=== PATIENT | female | born 1985 | race Caucasian/White ===

== ENCOUNTER → 2023-08-28 08:21 | Outpatient (REF) | payer OTHER, SELFPAY | LOC: WDC 08:21 | PROVIDERS: ATTENDING PHYSICIAN Obstetrics & Gynecology; FAMILY PHYSICIAN Nurse Practitioner | DX: R92.8 Other abnormal and inconclusive findings on diagnostic imaging of breast (principal) | CPT/HCPCS: 76642 ==

== ENCOUNTER → 2023-11-02 08:53 | Outpatient (REF) | payer OTHER, SELFPAY | LOC: RAD 08:53 | PROVIDERS: ATTENDING PHYSICIAN Obstetrics & Gynecology; FAMILY PHYSICIAN Nurse Practitioner | DX: Z31.69 Encounter for other general counseling and advice on procreation (principal); O03.9 Complete or unspecified spontaneous abortion without complication | CPT/HCPCS: 76830; 76856 ==

== ENCOUNTER 2024-01-02 17:20 | Emergency (ER) | payer OTHER, SELFPAY ==
[2024-01-02 17:21] VITALS: BP 123/80
--- NOTE | 2024-01-02 18:32 | ED.GENMED ---
History of Present Illness
General
Chief Complaint: Vaginal Bleeding
Source: patient
Time Seen by Provider: 01/02/24 18:24
History of Present Illness
History of Present Illness:
38yo female currently 9 weeks gestation presenting for evaluation of vaginal bleeding. She started to have spotting 3 days ago. The bleeding has been gradually worsening and she started to pass clots today. She bled through 2 maxi pads so
far today. She also reports pelvic cramping. She had a pelvic ultrasound about 3 weeks ago and there was a small subchorionic hemorrhage present at that time. She has not seen OBGYN this yet but has an appointment scheduled for next week.
She follows with [facility]. Blood type is O positive.
Past History
Past History
ED Past Medical History: Other (Migraines)
ED Past Surgical History:
Social History
Tobacco: Non-smoker
Alcohol: Occasional
Drug: None
Personal:
Living: with family
Phy Exam
General Physical Exam
General Presentation: well appearing
General age: appears stated age
General Skin: warm and dry
General Habitus: normal
General Mental: alert
Pulmonary Exam
Pulmonary Exam: no respiratory distress
Gastrointestinal Exam
Gastrointestinal Exam: non tender, soft and non distended
Thi Coma Scale
Eye Opening: Spontaneous
Verbal Response: Oriented
Motor Response: Obeys Commands
GCS Total Score: 15
Skin Exam
Skin Exam: normal color and warm/dry
Psychiatric Exam
Psychiatric Exam: normal mood/affect
Course
Orders/Labs/Results
Orders:
Orders
01/02/24 18:34
US W Transvaginal Urgent
Comment:
Reason For Exam: 9 weeks , vaginal bleeding and cramping
01/02/24 18:52
Basic Metabolic Panel Urgent
Complete Blood Count/With Diff Urgent
HCG, Beta Quantitative [Beta HCG Quantitative] Urgent
Is this a screen?: No
Abnormal Lab Results
01/02/24
18:52
Absolute Neuts (auto) 6.9 H 10^3/uL
(1.4-6.5)
Lymphocytes % 20.2 L %
(20.5-51.1)
Glucose 100 H mg/dl
(70-99)
01/02/24 18:52
01/02/24 18:52
Vital Signs
Initial and Last Documented VS:
Initial Vital Signs
Temp Pulse Resp BP Pulse Ox
98.0 F 78 16 123/80 99
01/02/24 17:21 01/02/24 17:21 01/02/24 17:21 01/02/24 17:21 01/02/24 17:21
Last Documented Vital Signs
Temp Pulse Resp BP Pulse Ox
98.0 F 78 16 123/80 99
01/02/24 17:21 01/02/24 17:21 01/02/24 17:21 01/02/24 17:21 01/02/24 17:21
MDM/Problems Addressed
Differential Diagnosis Includes:
38yoF here with vaginal bleeding and abdominal cramping x several days. Worsening over the past 24 hours. Currently 9 weeks . She is afebrile and hemodynamically stable. She is well appearing in no distress. Abdominal exam is benign.
Differential diagnosis includes but is not limited to: miscarriage, subchorionic hemorrhage, threatened , doubt ectopic as she had an US 3 weeks ago that confirmed an IUP
Initial ED plan: Check CBC, BMP, quantitative HCG, and pelvic ultrasound. Blood type is O+, no indication for Rhogam.
*Critical Care Note
Total Time (30-74mins, 75-104mins- exclusive of procedures): Not Applicable
Update Note
Update Note:
Hemoglobin is normal at 14.3. Quantitative hCG 7400. Pelvic ultrasound does not show an IUP. Imaging consistent with a missed . Patient had a prior ultrasound last month that confirmed an IUP so doubt ectopic . Vitals stable.
She is stable for discharge. Advised close f/u with OBGYN. Strict ED return precautions discussed including dizziness, syncope, or saturating >2 pads/hour. She expressed understanding and is agreeable to plan. Patient discharged in stable condition.
ED Attending Note
-
Portions of this chart may have been created with voice recognition software.� Occasional wrong word or��sound alike� substitutions may have occurred due to the inherent limitations of voice recognition software.
Discharge Plan
Departure
Patient Disposition: Home (Routine Discharge)
Date of Disposition: 01/02/24
Time of Disposition: 21:29
Patient with high blood pressure during this ER visit?: No
Discharge Problem:
Missed
Instructions: Miscarriage (DC)
Prescriptions:
No Action
Vitamin Tablet
1 tab PO DAILY
acetaminophen 325 MG tablet
650 mg PO Q4HPRN PRN (Reason: mild pain) 0RF
ibuprofen 600 MG tablet
600 mg PO Q4HPRN PRN (Reason: cramps) 0RF
cephalexin 500 MG capsule
500 mg PO QID 5 Days Qty: 20 0RF
Referrals:
UNKNOWN - PT DOES,NOT KNOW [Family Provider] -
Activity Restrictions/Additional Instructions:
Please follow-up with your OBGYN on Thursday. Return to the ER with any dizziness, passing out, saturating >2 pads/hour, or fevers.
Interventions
Interventions:
*Risk Screen - Suicide Last Done: 01/02/24 18:33
*General Assessment Last Done: 01/02/24 17:21
*Neglect/Abuse Screening Last Done: 01/02/24 18:33
ED- Fall Risk Assessment Last Done: 01/02/24 18:33
*ED COVID-19 Vaccine History Last Done: 01/02/24 17:21
ED-Female Genitourinary Assessment Last Done: 01/02/24 18:33
Discharge Date and Time
Print Language: [id number]
[2024-01-02 18:53] VITALS: BMI 22.5
[2024-01-02 19:06] LABS: % Basophils 0.4 % (0-2); % Eosinophils 1.4 % (0-6); % Immature Granulocytes 0.2 % (0-0.5); % Lymphocytes 20.2 % (20.5-51.1); % Monocytes 5.7 % (1.7-9.3); % Neutrophils 72.1 % (42.2-75.2); Absolute Eosinophils 0.1 10^3/uL (0-0.7); Absolute Lymphocytes 1.9 10^3/uL (1.2-3.4); Absolute Monocytes 0.6 10^3/uL (0.1-0.6); Absolute Neutrophils 6.9 10^3/uL (1.4-6.5); Hematocrit 39.5 % (37.0-47.0); Hemoglobin 14.3 g/dL (12.0-16.0); Mean Corp Hgb Conc. 36.2 g/dL (33.0-37.0); Mean Corpuscular Hgb 30.8 pg (27.0-31.0); Mean Corpuscular Volume 85.1 fL (81.0-99.0); Mean Platelet Volume 10.4 fL (7.4-10.4); Nucleated Red Blood Cells % 0 %; Platelet Count 222 10^3/uL (130-400); Red Blood Cell Count 4.64 10^6/uL (4.20-5.40); Red Cell Dist. Width 11.5 % (11.5-14.5); White Blood Cell Count 9.6 10^3/uL (4.8-10.8)
[2024-01-02 19:20] LABS: Blood Urea Nitrogen 11 mg/dl (7-17); Calcium 9.9 mg/dl (8.4-10.2); Carbon Dioxide 22 mmol/L (22-30); Chloride 105 mmol/L (98-107); Estimated Creatinine Clearance 84 ml/min; Glucose 100 mg/dl (70-99); Potassium 4.2 mmol/L (3.5-5.1); Sodium 137 mmol/L (135-145); eGFR > 60.00
[2024-01-02 21:48] VITALS: BP 120/81
== END 2024-01-02 21:48 | disposition home or self-care (01) ==
LOC: EMR 17:20
PROVIDERS: Physician Assistant; EMERGENCY PHYSICIAN Emergency Medicine
DX: O02.1 Missed abortion (principal); O26.891 Other specified pregnancy related conditions, first trimester; Z3A.09 9 weeks gestation of pregnancy; R10.9 Unspecified abdominal pain
CPT/HCPCS: 99284; 76801; 76817; 80048; 84702; 85025

== ENCOUNTER → 2024-09-13 13:44 | Outpatient (REF) | payer OTHER, SELFPAY | LOC: PNTC 13:44 | PROVIDERS: ATTENDING PHYSICIAN Obstetrics & Gynecology | DX: Z36.0 Encounter for antenatal screening for chromosomal anomalies (principal); Z36.82 Encounter for antenatal screening for nuchal translucency | CPT/HCPCS: 76801; 76813 ==

== ENCOUNTER → 2024-11-03 13:17 | Outpatient (REF) | payer OTHER, SELFPAY | LOC: PNTC 13:17 | PROVIDERS: ATTENDING PHYSICIAN Obstetrics & Gynecology | DX: O09.529 Supervision of elderly multigravida, unspecified trimester (principal) | CPT/HCPCS: 76811; 76817 ==

== ENCOUNTER → 2025-02-07 14:26 | Outpatient (REF) | payer OTHER, SELFPAY | LOC: PNTC 14:26 | PROVIDERS: ATTENDING PHYSICIAN Obstetrics & Gynecology | DX: O09.529 Supervision of elderly multigravida, unspecified trimester (principal) | CPT/HCPCS: 76816 ==